=== PATIENT | female | born 1970 | race Caucasian/White ===

== ENCOUNTER 2021-07-05 16:38 | Emergency (ER) | payer MEDICAID ==
[~2021-07-05] VITALS: Ht 170.2 cm; Wt 63.5 kg
--- NOTE | 2021-07-05 17:15 | NUR ---
BIB C/O HEADACHE,NECK AND LOWER BACK PAIN X4 DAYS. RATES PAIN 8/10. IN ROOM AIR AND DENIES SOB. RESPIRATION REGULAR AND UNLABORED. WILL CONTINUE TO MONITOR THE PATIENT.
[2021-07-05] MEDS ORDERED: KETOROLAC TROMETHAMINE 15 MG/ML VIAL ONE (17:18)
[2021-07-05] MEDS ORDERED: CYCLOBENZAPRINE 10 MG TABLET ONE (17:18)
[2021-07-05] MEDS ORDERED: KETOROLAC TROMETHAMINE INJ 30 MG/ML VIAL ONE (17:19)
[2021-07-05] MEDS ORDERED: KETOROLAC TROMETHAMINE INJ 60 MG/2 ML VIAL IM ONE (17:30)
[2021-07-05] MEDS ORDERED: CYCLOBENZAPRINE 10 MG TABLET PO ONE (17:30)
[2021-07-05] MEDS ORDERED: CYCL10TA9 PO (17:52)
[2021-07-05] MEDS ORDERED: IBUP-1955 PO (17:52)
[2021-07-05] MEDS ORDERED: TRAM50TA2 PO (17:52)
[2021-07-05] MEDS ORDERED: SUMA100T PO (18:01)
[2021-07-05 18:07] VITALS: BP 121/73
--- NOTE | 2021-07-05 18:07 | NUR ---
Patient discharged to home in stable condition. Written and verbal after care instructions given. Patient verbalizes understanding of instruction.
== END 2021-07-05 18:07 | disposition home or self-care (01) ==
LOC: ER 16:43
DX: M54.50 Low back pain, unspecified (principal); M54.2 Cervicalgia; G43.909 Migraine, unspecified, not intractable, without status migrainosus; Z87.39 Personal history of other diseases of the musculoskeletal system and connective tissue; Z79.899 Other long term (current) drug therapy
CPT/HCPCS: 96372; 99283; J1885